=== PATIENT | male | born 1955 | race Caucasian/White ===

== ENCOUNTER 2024-01-08 16:24 | Inpatient (IN) | payer MEDICARE ==
[~2024-01-08 16:24] MED LIST: Iopamidol-370 76% 500 ML MDV (1 ML CHARGE) ONE
[2024-01-08 16:46] LABS: #Basophils 0.03 10x3/uL (0.0-0.2); %Basophils 0.4 % (0.0-1.0); %Eosinophils 1.7 % (0.0-10.0); %Lymphocytes 20.2 % (21.0-51.0); %Monocytes 5.5 % (0.0-10.0); %Neutrophils 71.8 % (42.0-75.0); Hematocrit 44.5 % (42.0-52.0); Mean Corpuscular HGB CONC 33.7 g/dL (32.0-36.0); Mean Corpuscular Hemoglobin 30.2 pg (27.0-31.0); Mean Corpuscular Volume 89.5 fL (78.0-98.0); Mean Platelet Volume 10.1 fL (7.4-10.4); Platelet Count 149 10x3/uL (130-400); RBC Distribution Width 12.4 % (11.5-14.5); Red Blood Cell (RBC) Count 4.97 mill/uL (4.70-6.10)
[2024-01-08 16:59] LABS: INR-International Normal Ratio 1.1; PTT 30.1 sec (22.9-36.1); Prothrombin Time 13.9 sec (12.0-14.7)
[2024-01-08 17:02] LABS: ALT (SGPT) 33 U/L (8-55); AST (SGOT) 23 U/L (5-34); Alkaline Phosphatase 63 U/L (40-110); Anion Gap 10 mmol/L (10-20); BUN (Urea Nitrogen) 23 mg/dL (8.4-25.7); Bilirubin, Total 0.8 mg/dL (0.2-1.2); Calc. Creatinine Clearance 0 mL/min (70-130); Carbon Dioxide 27 mmol/L (23-31); Chloride 104 mmol/L (98-107); Estimated GFR 50; Globulin 2.9 g/dL (2.4-3.5); Glucose 133 mg/dL (80-115); Potassium 3.9 mmol/L (3.5-5.1); Protein, Total 6.9 g/dL (5.8-8.1); Sodium 137 mmol/L (136-145)
[2024-01-08 17:07] LABS: Troponin I Less than 0.010 ng/mL (< 0.028)
[2024-01-08] MEDS ORDERED: Tenecteplase 50 MG ONE (18:39)
[2024-01-08 21:05] VITALS: BMI 28.9
[2024-01-08] MEDS ORDERED: hydrALAZINE 20 MG/ML VIAL SLOW IVP PRN (21:20)
[2024-01-08] MEDS: Sodium Chloride 0.9% 1,000 ML IV SCH (21:50)
[2024-01-09] MEDS: Atorvastatin Calcium 40 MG TAB PO SCH (08:03)
[2024-01-09] MEDS ORDERED: Aspirin Chewable 81 MG TAB PO SCH (09:00)
[2024-01-09] MEDS ORDERED: Clopidogrel Bisulfate 75 MG TAB PO SCH (09:00)
[2024-01-09] MEDS ORDERED: Aspirin 81 mg Enteric Coated Tablet PO SCH (09:00)
[2024-01-09 18:55] LABS: #Basophils 0.05 10x3/uL (0.0-0.2); %Basophils 0.6 % (0.0-1.0); %Eosinophils 2.9 % (0.0-10.0); %Lymphocytes 30.4 % (21.0-51.0); %Monocytes 5.6 % (0.0-10.0); %Neutrophils 60.2 % (42.0-75.0); Hematocrit 46.5 % (42.0-52.0); Hemoglobin 15.3 g/dL (14.0-18.0); Mean Corpuscular HGB CONC 32.9 g/dL (32.0-36.0); Mean Corpuscular Hemoglobin 29.9 pg (27.0-31.0); Mean Platelet Volume 9.8 fL (7.4-10.4); Platelet Count 143 10x3/uL (130-400); RBC Distribution Width 12.3 % (11.5-14.5); Red Blood Cell (RBC) Count 5.11 mill/uL (4.70-6.10)
[2024-01-09 19:14] LABS: Hemoglobin A1c 5.6 % (4.0-6.0)
[2024-01-09 19:17] LABS: Anion Gap 12 mmol/L (10-20); BUN (Urea Nitrogen) 19 mg/dL (8.4-25.7); Calc. Creatinine Clearance 78 mL/min (70-130); Calcium 9.7 mg/dL (7.8-10.44); Carbon Dioxide 26 mmol/L (23-31); Cardiac Risk 3.5 (Less than 4.5); Chloride 108 mmol/L (98-107); Cholesterol 150 mg/dl (< 200 Desired); Estimated GFR 66; Glucose 131 mg/dL (80-115); HDL Cholesterol 43 mg/dL (>60 Neg Risk); LDL Cholesterol, Calculated 89 mg/dL; Potassium 4.4 mmol/L (3.5-5.1); Sodium 142 mmol/L (136-145); Triglycerides 90 mg/dL (Less than 150)
[2024-01-10 04:34] LABS: #Basophils 0.05 10x3/uL (0.0-0.2); %Basophils 0.7 % (0.0-1.0); %Eosinophils 3.2 % (0.0-10.0); %Lymphocytes 31.5 % (21.0-51.0); %Neutrophils 57.3 % (42.0-75.0); Hematocrit 45.8 % (42.0-52.0); Hemoglobin 15.1 g/dL (14.0-18.0); Mean Corpuscular Volume 91.1 fL (78.0-98.0); Platelet Count 141 10x3/uL (130-400); RBC Distribution Width 12.5 % (11.5-14.5); Red Blood Cell (RBC) Count 5.03 mill/uL (4.70-6.10)
[2024-01-10 05:13] LABS: Anion Gap 12 mmol/L (10-20); BUN (Urea Nitrogen) 20 mg/dL (8.4-25.7); Calc. Creatinine Clearance 90 mL/min (70-130); Calcium 8.9 mg/dL (7.8-10.44); Carbon Dioxide 22 mmol/L (23-31); Chloride 110 mmol/L (98-107); Estimated GFR 78; Glucose 99 mg/dL (80-115); Magnesium 2.1 mg/dL (1.6-2.6); Potassium 3.9 mmol/L (3.5-5.1); Sodium 140 mmol/L (136-145)
[2024-01-10] MEDS: Aspirin Chewable 81 MG TAB PO SCH (08:13)
[2024-01-10] MEDS: Clopidogrel Bisulfate 75 MG TAB PO SCH (08:14)
[2024-01-10] MEDS: Losartan 25 MG TAB PO SCH (08:14)
[2024-01-10 10:34] VITALS: BP 159/79; TEMP 98.8
== END 2024-01-10 10:20 | disposition home or self-care (01) | DRG 62 ==
LOC: ERS 16:24 → CCU 20:31
PROVIDERS: ADMIT Family Medicine; ATTEND Family Medicine
DX: G45.9 Transient cerebral ischemic attack, unspecified (principal); N17.9 Acute kidney failure, unspecified; I25.2 Old myocardial infarction; F10.90 Alcohol use, unspecified, uncomplicated; R00.1 Bradycardia, unspecified; Z95.5 Presence of coronary angioplasty implant and graft; Z79.82 Long term (current) use of aspirin; Z79.02 Long term (current) use of antithrombotics/antiplatelets; Z79.899 Other long term (current) drug therapy
CPT/HCPCS: 36415; 36416; 70450; 70496; 70498; 70551; 71045; 80048; 80053; 80061; 83036; 83735; 84484; 85025; 85610; 85730; 93005; 93306; 94760; 96374; J3101; J7030; Q9967